=== PATIENT | male | born 1990 | race Hispanic/Latino ===

== ENCOUNTER 2024-10-13 03:29 | Day surgery (SDC) | payer SELFPAY ==
[2024-10-13] MEDS ORDERED: Glucagon 1 MG/ML KIT ONE (03:47)
[2024-10-13 05:13] LABS: Hematocrit 45.2 % (42.0-52.0); Hemoglobin 16.0 g/dL (14.0-18.0); Mean Corpuscular Hemoglobin 34.3 pg (27.0-31.0); Mean Corpuscular Volume 96.8 fL (78.0-98.0); Platelet Count 263 10x3/uL (130-400); Red Blood Cell (RBC) Count 4.67 mill/uL (4.70-6.10); White Blood Cell (WBC) Count 11.05 10x3/uL (4.8-10.8)
[2024-10-13 05:14] LABS: ALT (SGPT) 97 U/L (Less than 45); AST (SGOT) 66 U/L (11-34); Albumin 4.2 g/dL (3.1-4.5); Alkaline Phosphatase 110 U/L (40-110); Anion Gap 19 mmol/L (10-20); BUN (Urea Nitrogen) 5 mg/dL (8.9-20.6); Bilirubin, Total 0.3 mg/dL (0.3-1.2); Calc. Creatinine Clearance 0 mL/min (70-130); Calcium 9.1 mg/dL (7.8-10.44); Carbon Dioxide 18 mmol/L (22-29); Chloride 102 mmol/L (98-107); Globulin 4.1 g/dL (2.4-3.5); Glucose 141 mg/dL (70-105); Potassium 2.7 mmol/L (3.5-5.1); Sodium 136 mmol/L (136-145)
[2024-10-13] MEDS ORDERED: Potassium Chloride 20 MEQ (100 mL) BAG ONE (05:42)
[2024-10-13 05:44] LABS: Platelet Adequacy Comment Platelets Normal; RBC Morphology Within Normal Limits; Smudge Cells 9.9 %
[2024-10-13] MEDS ORDERED: NS 0.9% w/ 20 MEQ KCL 1,000 ML ONE (05:44)
[2024-10-13] MEDS ORDERED: Lidocaine 1% PF 5 ML VIAL ONE (08:52)
[2024-10-13] MEDS ORDERED: PROPOFOL 20 ML ONE (08:52)
[2024-10-13] MEDS ORDERED: SUCCINYLCHOLINE/SOD CL,ISO/PF 200 MG/10 ML SYRINGE FS ONE (08:52)
[2024-10-13] MEDS ORDERED: Ondansetron PF 4 MG/2 ML Vial ONE (09:08)
[2024-10-13] MEDS ORDERED: Iopamidol-370 76% 500 ML MDV (1 ML CHARGE) ONE (09:43)
== END 2024-10-13 11:08 | disposition home or self-care (01) ==
LOC: ERS 03:29 → SDC/OP 08:05
PROVIDERS: ATTEND Student in an Organized Health Care Education/Training Program
PROC: 0DB18ZX Excision of Upper Esophagus, Via Natural or Artificial Opening Endoscopic, Diagnostic (ICD-10-PCS; principal; 2024-10-13)
PROC: 0DB68ZX Excision of Stomach, Via Natural or Artificial Opening Endoscopic, Diagnostic (ICD-10-PCS; principal; 2024-10-13)
PROC: 0DC18ZZ Extirpation of Matter from Upper Esophagus, Via Natural or Artificial Opening Endoscopic (ICD-10-PCS; principal; 2024-10-13)
PROC: 0D718ZZ Dilation of Upper Esophagus, Via Natural or Artificial Opening Endoscopic (ICD-10-PCS; principal; 2024-10-13)
PROC: 0DB38ZX Excision of Lower Esophagus, Via Natural or Artificial Opening Endoscopic, Diagnostic (ICD-10-PCS; principal; 2024-10-13)
DX: T18.128A Food in esophagus causing other injury, initial encounter (principal); K29.50 Unspecified chronic gastritis without bleeding; B96.81 Helicobacter pylori [H. pylori] as the cause of diseases classified elsewhere; K20.90 Esophagitis, unspecified without bleeding; K22.2 Esophageal obstruction; R79.89 Other specified abnormal findings of blood chemistry; F10.10 Alcohol abuse, uncomplicated; Y90.9 Presence of alcohol in blood, level not specified; W44.F3XA Food entering into or through a natural orifice, initial encounter
CPT/HCPCS: 70491; 71260; 80053; 85025; 88305; 88312; 88342; 96365; 96366; 96375; C1726; J1611; J2405; J2704; J3010; J3360; J3480; Q9967